=== PATIENT | male | born 1985 | race Caucasian/White ===

== ENCOUNTER 2024-03-30 19:08 | Emergency (ER) | payer MEDICAID ==
[~2024-03-30] VITALS: Ht 175.3 cm; Wt 136.0 kg
[~2024-03-30 19:08] MED LIST: TOP100 PO
[2024-03-30 19:20] VITALS: O2SAT 95
[2024-03-30] MEDS ORDERED: SODIUM CHLORIDE 0.9% 1,000 ML IV ONE (19:45)
[2024-03-30] MEDS ORDERED: DICYCLOMINE HCL 10MG/ML 2ML VIAL IM ONE (19:45)
[2024-03-30 19:56] LABS: BASOPHILS % 0.8 % (0.0-2.0); EOSINOPHILS % 1.3 % (0.0-5.0); HEMATOCRIT. 43.2 % (42.0-52.0); HEMOGLOBIN. 14.5 g/dL (14.0-18.0); LYMPHOCYTES % 18.2 % (20.0-50.0); MEAN CORPUSCULAR HEMOGLOBIN 29.4 pg (28.0-32.0); MEAN CORPUSCULAR HGB CONC 33.4 g/dL (31.0-37.0); MEAN CORPUSCULAR VOLUME 87.9 fL (80.0-94.0); MEAN PLATELET VOLUME 8.6 fl (7.4-10.4); MONOCYTES % 5.9 % (2.0-8.0); NEUTROPHILS % 73.8 % (40.0-76.0); PLATELET 265 x1000/uL (130-400); RED BLOOD CELL COUNT 4.92 mill/uL (4.7-6.1); RED CELL DISTRIBUTION WIDTH 13.4 % (11.6-14.6); WHITE BLOOD COUNT 13.4 x1000/uL (4.5-11.0)
[2024-03-30 20:00] LABS: CARBON DIOXIDE 24 mEq/L (21-32); CHLORIDE 103 mEq/L (98-107); POTASSIUM 3.7 mEq/L (3.5-5.1); SODIUM 135 mEq/L (136-145)
[2024-03-30 20:01] LABS: CALCIUM 9.2 mg/dL (8.7-10.4)
[2024-03-30 20:05] LABS: CREATININE 0.8 mg/dL (0.6-1.3)
[2024-03-30 20:06] LABS: GLUCOSE 132 mg/dL (70-105); UREA NITROGEN BLOOD 8 mg/dL (9-23)
[2024-03-30 20:07] LABS: ALANINE AMINOTRANSFERASE 64 IU/L (10-49); ASPARTATE AMINOTRANSFERASE 29 IU/L (<34); TROPONIN I HIGH SENSITIVITY 7 ng/L (3.0-53)
[2024-03-30 20:08] LABS: ALBUMIN 4.6 g/dL (3.2-4.8); BILIRUBIN DIRECT 0.1 mg/dL (<=3.0); BILIRUBIN TOTAL 0.5 mg/dL (0.1-1.0); PROTEIN TOTAL 7.2 g/dL (6.0-8.3)
[2024-03-30 21:08] LABS: CLARITY URINE CLEAR (CLEAR); COLOR URINE YELLOW (YELLOW); GLUCOSE URINE NEGATIVE (NEGATIVE); KETONES URINE NEGATIVE (NEGATIVE); LEUKOCYTE ESTERASE URINE NEGATIVE (NEGATIVE); NITRITE URINE NEGATIVE (NEGATIVE); OCCULT BLOOD URINE NEGATIVE (NEGATIVE); PROTEIN URINE NEGATIVE (NEGATIVE); SPECIFIC GRAVITY URINE 1.021 (1.005-1.030); UROBILINOGEN URINE 0.2 E.U./dL (0.2-1.0)
[2024-03-30] MEDS: PANTOPRAZOLE SODIUM 40 MG/VIAL IV NR (23:04)
[2024-03-30] MEDS: ONDANSETRON HCL 4MG/2ML INJ IV NR (23:04)
[2024-03-30] MEDS: ONDANSETRON HCL 4MG/2ML INJ IV ONE (23:20)
[2024-03-30] MEDS: PANTOPRAZOLE SODIUM 40 MG/VIAL IV ONE (23:20)
[2024-03-30] MEDS ORDERED: IOHEXOL-300 100 ML BOTTLE ONE (23:21)
[2024-03-31] MEDS ORDERED: MYL30 MT
[2024-03-31] MEDS ORDERED: ONDA4TAB50 MT
[2024-03-31 00:24] VITALS: BP 132/88; PULSE 88; RESP 14; TEMP 36.72516; O2SAT 95
== END 2024-03-31 01:32 | disposition home or self-care (01) ==
LOC: ER 19:08
DX: R10.13 Epigastric pain (principal); R11.0 Nausea; R56.9 Unspecified convulsions
CPT/HCPCS: 99285; 74177; 96374; 96375; 80076; 80048; 81003; 83690; 85025; 84484; 36415; 93005; Q9967; J0500; J2405; J2470; J7030